=== PATIENT | male | born 1990 | race Caucasian/White ===

== ENCOUNTER 2017-02-06 14:31 | Observation (INO) | payer MEDICAID ==
[~2017-02-06] VITALS: Ht 170.2 cm; Wt 97.4 kg
[~2017-02-06 14:31] MED LIST: LITH300T3 PO; QUET300T5 PO
[2017-02-06 15:19] LABS: HEMOGLOBIN 17.2 g/dL (13.7-18.0); WHITE BLOOD COUNT 7.8 x10^3/uL (3.4-10)
[2017-02-06 15:24] LABS: DAU SCREEN DISCLAIMER
[2017-02-06 15:32] LABS: BLOOD UREA NITROGEN 18 mg/dL (7-18)
[2017-02-06 15:36] LABS: ACETAMINOPHEN < 2 mcg/mL (10-30)
[2017-02-06] MEDS: NICOTINE 14MG/24 HR PATCH.TD24 TD SCH (17:00)
[2017-02-06] MEDS ORDERED: ACETAMINOPHEN 325 MG TABLET PO PRN (17:00)
[2017-02-06] MEDS ORDERED: ONDANSETRON ODT 4 MG PO PRN (17:00)
[2017-02-06 19:42] VITALS: BP 114/79
[2017-02-07 07:50] VITALS: BP 107/73
[2017-02-07] MEDS: NICOTINE 14MG/24 HR PATCH.TD24 TD SCH (16:06)
[2017-02-07 19:34] VITALS: BP 109/67
[2017-02-07] MEDS: LORazepam 1MG TABLET PO PRN (20:55)
[2017-02-07] MEDS ORDERED: QUETIAPINE 100MG TABLET PO ONE (21:00)
[2017-02-08 08:00] VITALS: BP 112/73
[2017-02-08] MEDS: NICOTINE 14MG/24 HR PATCH.TD24 TD SCH (16:07)
[2017-02-08 19:30] VITALS: BP 131/87
[2017-02-08] MEDS: LORazepam 1MG TABLET PO PRN (20:38)
[2017-02-08] MEDS ORDERED: QUETIAPINE 100MG TABLET PO ONE (21:00)
[2017-02-09 07:13] VITALS: BP 128/89
[2017-02-09] MEDS: NICOTINE 14MG/24 HR PATCH.TD24 TD SCH (17:13)
[2017-02-09 19:05] VITALS: BP 137/88
[2017-02-09] MEDS ORDERED: QUETIAPINE 100MG TABLET PO ONE (20:00)
[2017-02-10 08:00] VITALS: BP 110/68
[2017-02-10] MEDS: NICOTINE 14MG/24 HR PATCH.TD24 TD SCH (17:28)
[2017-02-10 19:33] VITALS: BP 146/79
[2017-02-10] MEDS: LORazepam 1MG TABLET PO PRN (20:50)
[2017-02-11 08:08] VITALS: BP 142/108
[2017-02-11] MEDS: NICOTINE 14MG/24 HR PATCH.TD24 TD SCH (17:16)
[2017-02-11 19:33] VITALS: BP 132/96
[2017-02-12 07:30] VITALS: BP 117/71
== END 2017-02-12 16:38 ==
LOC: ED 16:25 → EDIP 16:26 → ED 16:38 → 3E 17:17
PROVIDERS: ADMIT Internal Medicine; ATTEND Internal Medicine
DX: R45.851 Suicidal ideations (principal); F31.9 Bipolar disorder, unspecified; F10.10 Alcohol abuse, uncomplicated; F19.10 Other psychoactive substance abuse, uncomplicated; F17.200 Nicotine dependence, unspecified, uncomplicated; Z91.5 Personal history of self-harm
CPT/HCPCS: 36415; 80048; 80178; 80307; 80329; 82040; 85025; 99285; G0378; Q0162; G0479; G0480

== ENCOUNTER 2017-02-16 11:06 | Emergency (ER) | payer MEDICAID ==
[~2017-02-16] VITALS: Ht 172.7 cm; Wt 99.7 kg
[2017-02-16 11:08] VITALS: BP 128/84
== END 2017-02-16 12:07 | disposition home or self-care (01) ==
LOC: ED 12:05
DX: F33.9 Major depressive disorder, recurrent, unspecified (principal)
CPT/HCPCS: 99284

== ENCOUNTER 2018-01-23 22:06 | Emergency (ER) | payer MEDICAID ==
[~2018-01-23] VITALS: Ht 170.2 cm; Wt 93.8 kg
[~2018-01-23 22:06] MED LIST changes: +DIVA125T2 PO
[2018-01-23 22:12] VITALS: BP 107/72
[2018-01-23 23:21] LABS: BASOPHILS # (AUTO) 0.04 x10^3/uL (0-0.1); BASOPHILS % (AUTO) 0 % (0-1); EOSINOPHILS # (AUTO) 0.09 x10^3/uL (0-0.4); EOSINOPHILS % (AUTO) 1 % (1-7); LYMPHOCYTES # (AUTO) 3.14 x10^3/uL (1-3.4); LYMPHOCYTES % (AUTO) 32 % (22-44); MD NO; MEAN CORPUSCULAR HEMOGLOBIN 29.8 pg (27.5-34.5); MEAN CORPUSCULAR HGB CONC 34.3 g/dL (33.2-36.2); MEAN CORPUSCULAR VOLUME 86.9 fL (81-97); MEAN PLATELET VOLUME 8.5 fL (7.4-10.4); MONOCYTES # (AUTO) 0.48 x10^3/uL (0.2-0.8); MONOCYTES % (AUTO) 5 % (2-9); NEUTROPHILS # (AUTO) 5.98 x10^3/uL (1.8-6.8); NEUTROPHILS % (AUTO) 62 % (42-75); PLATELET COUNT 273 x10^3/uL (130-400); RED BLOOD COUNT 5.23 x10^6/uL (4.38-5.82); RED CELL DISTRIBUTION WIDTH 12.7 % (9.4-14.8)
[2018-01-23 23:29] LABS: ALBUMIN 3.9 g/dL (3.4-5.0); ANION GAP 6 mmol/L (5-15); CHLORIDE 106 mmol/L (98-107); CREATININE 1.22 mg/dL (0.7-1.3)
[2018-01-23 23:38] LABS: ACETAMINOPHEN < 2 mcg/mL (10-30); SALICYLATE LEVEL < 1.7 mg/dL (2.8-20.0)
[2018-01-24 00:10] LABS: AMPHETAMINE SCREEN, URINE Negative (Negative); BARBITURATE SCREEN, URINE Negative (Negative); BENZODIAZEPINE SCREEN, URINE Negative (Negative); CANNABINOID SCREEN, URINE Negative (Negative); COCAINE SCREEN, URINE Negative (Negative); METHADONE SCREEN, URINE Negative (Negative); OPIATE SCREEN, URINE Negative (Negative)
== END 2018-01-24 01:47 | disposition home or self-care (01) ==
LOC: ED 23:59
DX: F32.9 Major depressive disorder, single episode, unspecified (principal); Z76.5 Malingerer [conscious simulation]; Z88.8 Allergy status to other drugs, medicaments and biological substances
CPT/HCPCS: 36415; 80048; 80307; 80329; 82040; 85025; 99284; G0480